=== PATIENT | male | born 1995 | race Caucasian/White ===

== ENCOUNTER 2021-06-17 16:11 | Outpatient (REF) | payer OTHER, SELFPAY ==
--- NOTE | ~2021-06-17 | CT_ITS ---
EXAMINATION: CT MAXILLOFACIAL WITHOUT CONTRAST CLINICAL INFORMATION: Sinonasal polyp and deviated septum. COMPARISON: None. TECHNIQUE: Multidetector helical imaging was performed in the axial plane with generation of coronal and sagittal reformatted images. This CT examination was performed using dose optimization techniques as appropriate, variously including the following: *Automated exposure control *Adjustment of mA and/or kV according to patient size (this includes techniques or standardized protocols for targeted exams where dose is matched to indication/reason for exam; i.e. extremities or head) *Use of iterative reconstruction technique DLP: 91 mGy-cm. FINDINGS: The paranasal sinuses are well aerated. There is a rightward deviation of the nasal septum with mild nasal septal spurring. The ostiomeatal complexes are clear. The lamina papyracea are intact. The ethmoid roofs are asymmetric. The carotid canals are normally covered by bone. The nasal passages are clear. No maxillary periapical disease is seen. The mastoid air cells and visualized middle ear cavities are well aerated. The orbits are normal. The TMJs are unremarkable. The imaged portions of the brain demonstrate no acute abnormality. CT/CT sinus wo con IMPRESSION: No active sinus disease. Rightward nasal septal deviation with mild nasal septal spurring.
== END 2021-06-17 16:12 | disposition home or self-care (01) ==
LOC: HO.CT 16:11
PROVIDERS: PCP Internal Medicine; Visit Provider Otolaryngology
DX: J34.2 Deviated nasal septum (principal)
CPT/HCPCS: 70486

== ENCOUNTER 2023-05-04 19:27 | Emergency (ER) | payer OTHER, SELFPAY ==
[2023-05-04 21:07] VITALS: BP 145/94; PULSE 71; RESP 18; TEMP 36.9; O2SAT 98; BMI 23.5
[2023-05-04] MEDS: diphenhydrAMINE HCL 25 MG CAPSULE PO (22:42)
--- NOTE | 2023-05-04 23:57 | ED_ITS ---
HPI - Skin/Abscess/Foreign Bdy General Chief complaint: Skin/Abscess/Foreign Body Stated complaint: rash, ?allergic reaction Time Seen by Provider: 05/04/23 23:27 Source: patient Mode of arrival: ambulatory Limitations: no limitations History of Present Illness HPI narrative: Patient is a 28-year-old male presents to the emergency department for evaluation of diffuse pruritic rash. Reports exposure to poison ender 2 weeks ago to the left forearm, does not believe he had potential re exposure. He stayed at a hotel on vacation for the past 4 days. Over the past 2 days he developed a diffuse body rash erythematous and pruritic without pain. Denies fevers, chills, new potential allergens such as soaps, detergents, lotions, new foods, new medications, potential tick exposure. Related Data Previous Rx's Medication Instructions Recorded hydrocortisone 2.5 % topical cream 1 appl topical BID #30 grams 05/05/23 loratadine 10 mg tablet 10 mg PO DAILY #7 tabs 05/05/23 prednisone 20 mg tablet 40 mg PO DAILY 4 days #8 tabs 05/05/23 Allergies Allergy/AdvReac Type Severity Reaction Status Date / Time No Known Allergies Allergy Verified 05/04/23 21:07 [No Known Allergies*] Review of Systems Review of Systems: Constitutional: No weight loss, fever, chills, weakness or fatigue. Skin: Positive rash Cardiovascular: No chest pain, chest pressure or chest discomfort. No palpitations or pedal edema. Respiratory: No shortness of breath, cough or sputum production. Gastrointestinal: No nausea, vomiting or diarrhea. No abdominal pain Genitourinary: No burning micturition. No urinary frequency or incontinence. Musculoskeletal: No muscle pain, back pain, joint pain or stiffness. Psychiatric: No depression or anxiety. [facility] Past Medical History Attestation statement: The following information was validated with the patient. Source: old records reviewed Social History Social History Advance Directives: No Advance Directives Information Provided: No Physical Exam Vital Signs: Vital Signs: Last Vital Signs Temp 98.4 F 05/04/23 21:07 Pulse 71 05/04/23 21:07 Resp 18 05/04/23 21:07 BP 145/94 H 05/04/23 21:07 Pulse Ox 98 05/04/23 21:07 O2 Del Method Room Air 05/04/23 21:07 BMI result Body Mass Index 23.5 Appearance: Alert.?Oriented to person, place and time. No acute distress.?Normal affect. Eyes: Pupils equal, round and reactive to light.? ENT: Pharynx normal.?? Neck: Normal inspection.? Neck supple.?? CVS: Heart sounds normal. Normal heart rate and rhythm.? Pulses normal.?? Respiratory: No respiratory distress.? Lung sounds clear to auscultation bilaterally?? Abdomen: Soft and non-tender. Normoactive bowel sounds. Skin: Skin warm and dry.? Normal skin color.? Diffuse maculopapular rash to the trunk and bilateral upper and lower extremities Extremities: No lower extremity edema.? Neuro: Moves all extremities spontaneously. Sensation intact bilaterally. CN II- XII intact. No focal neuro deficits. Ambulates with normal steady gait. Medications Administered Discontinued Medications Generic Name Dose Route Start Last Admin Trade Name Freq PRN Reason Stop Dose Admin Diphenhydramine HCl 25 mg 05/04/23 22:37 05/04/23 22:42 Diphenhydramine Hcl 25 Mg Capsule PO 05/04/23 22:38 25 mg ONCE ONE Administration Medical Decision Making Medical Decision Making [facility] Narrative: Patient is a 28-year-old male presents emergency department for evaluation of diffuse pruritic rash, examination consistent with a contact dermatitis. Overall well appearing. Nontoxic. Afebrile. No respiratory compromise. Stable for discharge home with prescription for prednisone, loratadine, topical hydrocortisone. Patient has an appointment scheduled with his wooden box maker later this week. Reviewed worrisome signs and symptoms that would warrant re- evaluation in the emergency department. All questions answered. Differential Diagnosis Differential Diagnoses: The differential diagnosis associated with the presentation includes (Contact dermatitis, allergic reaction, eczema, drug eruption, not consistent with SJS, TEN) Independent Historian Clinical information obtained from an independent historian. History obtained from or confirmed by: Parent (Patient's mother at bedside who confirmed history) Prescription Management I considered prescription management with: Other (As noted above) Discharge Plan Discharge Clinical Impression: Contact dermatitis Patient Disposition: Home, Self-Care Instructions: Contact Dermatitis (ED) Additional Instructions: As discussed please take the antihistamine and prednisone as prescribed. Apply topical hydrocortisone cream to areas of intense itch. Return back to the emergency department any new or worsening symptoms or concerns. Follow-up with your primary care provider/wooden box maker. Prescriptions: New prednisone 20 mg tablet 40 mg PO DAILY 4 Days Qty: 8 0RF loratadine 10 mg tablet 10 mg PO DAILY Qty: 7 0RF hydrocortisone 2.5 % cream 1 appl topical BID Qty: 30 0RF
[2023-05-04 23:59] VITALS: BP 135/89; PULSE 66; RESP 16; TEMP 36.8; O2SAT 98
[2023-05-05] MEDS: predniSONE 20 MG TABLET 40 MG PO (00:08)
== END 2023-05-05 00:29 | disposition home or self-care (01) ==
PROVIDERS: Emergency Provider Student in an Organized Health Care Education/Training Program; PCP Internal Medicine
DX: L25.9 Unspecified contact dermatitis, unspecified cause (principal)
CPT/HCPCS: 99282; 99283